=== PATIENT | male | born 1955 | race Caucasian/White ===

== ENCOUNTER 2020-04-17 13:31 | Inpatient (IN) | payer MEDICAID, OTHER ==
[~2020-04-17] VITALS: Ht 170.2 cm; Wt 75.7 kg
[2020-04-17] MEDS ORDERED: SODIUM CHLORIDE 0.9% 500 ML IV ONE (13:36)
[2020-04-17 14:14] LABS: Basophils # (auto) 0 10 ^3/uL (0-0.2); Basophils % (auto) 0.3 % (0.0-2.0); Eosinophils # (auto) 0 10 ^3/uL (0-0.8); Eosinophils % (auto) 0.2 % (0.0-7.0); Hematocrit 26.4 % (41.0-53.0); Hemoglobin 8.8 g/dL (13.5-17.5); Lymphocytes # (auto) 0.5 10 ^3/uL (0.4-5.4); Lymphocytes % (auto) 11.2 % (10.0-50.0); Mean Corpuscular Hemoglobin 28.9 pg (28.0-32.0); Mean Corpuscular Hgb Conc. 33.3 g/dL (32.0-36.0); Mean Corpuscular Volume 86.8 fL (80.0-100.0); Monocytes # (auto) 0.1 10 ^3/uL (0-1.3); Monocytes % (auto) 2.9 % (0.0-12.0); Neutrophils # (auto) 4.2 10 ^3/uL (1.6-8.6); Neutrophils % (auto) 85.4 % (37.0-80.0); Platelet Count (auto) 150 10^3/uL (140-450); Red Blood Cells 3.04 10^6/uL (4.5-5.90); Red Cell Distribution Width 17.4 % (11.8-14.3); White Blood Cell 4.9 10^3/uL (4.4-10.8)
[2020-04-17 14:32] LABS: Calcium 7.6 mg/dL (8.5-10.1)
[2020-04-17 14:39] LABS: BUN/Creatinine Ratio 17.8; Bilirubin, Total 0.9 mg/dL (0.2-1.0); Total Protein 7.8 g/dL (6.4-8.2)
[2020-04-17] MEDS ORDERED: MORPHINE SULFATE 4 MG/ML SYR/VIAL IV PRN (15:30)
[2020-04-17] MEDS ORDERED: ENOXAPARIN SOD 80 MG/0.8ML SYRINGE SC ONE (15:30)
[2020-04-17] MEDS ORDERED: MORPHINE SULF INJ 2 MG/ML SYRINGE 1ML IV PRN (15:30)
[2020-04-17] MEDS ORDERED: LORazepam 0.5 MG TAB PO PRN (15:30)
[2020-04-17] MEDS ORDERED: NITROGLYCERIN 0.4 MG SL TAB SL PRN ×2 (15:30)
[2020-04-17] MEDS ORDERED: ONDANSETRON HCL 4 MG/2 ML VIAL IV PRN (15:30)
[2020-04-17] MEDS ORDERED: CYCLOBENZAPRINE HCL 10 MG TAB PO PRN (15:45)
[2020-04-17] MEDS: SODIUM CHLORIDE 0.9% 1,000 ML IV SCH (16:14)
[2020-04-17] MEDS: ASPirin 81 mg TAB PO SCH (16:16)
[2020-04-17] MEDS ORDERED: LACTULOSE 20Gm/30ML SOLN PO PRN (16:30)
[2020-04-17] MEDS ORDERED: HEPARIN DRIP/D5W 100UNITS/ML 250 ML IV SCH ×2 (17:27→18:00)
[2020-04-17] MEDS ORDERED: HEPARIN SODIUM (PORCINE) 5000 UNITS/ML 1ML VIAL IV ONE (17:30)
[2020-04-17] MEDS: FUROSEMIDE 20 MG/2 ML VIAL IV SCH (17:40)
[2020-04-17 17:43] VITALS: BP 110/68
[2020-04-17 18:36] LABS: INR 1.21 (0.9-1.15); Partial Thromboplastin Time 33.9 sec (23.64-32.05)
[2020-04-17 19:03] LABS: Basophils # (auto) 0 10 ^3/uL (0-0.2); Eosinophils # (auto) 0 10 ^3/uL (0-0.8); Eosinophils % (auto) 0.6 % (0.0-7.0); Hemoglobin 7.7 g/dL (13.5-17.5); Lymphocytes # (auto) 0.8 10 ^3/uL (0.4-5.4); Monocytes # (auto) 0.2 10 ^3/uL (0-1.3); Neutrophils # (auto) 3.5 10 ^3/uL (1.6-8.6); White Blood Cell 4.6 10^3/uL (4.4-10.8)
[2020-04-17 19:06] LABS: Basophils % (auto) 0.5 % (0.0-2.0); Hematocrit 23.2 % (41.0-53.0); Mean Corpuscular Hemoglobin 28.7 pg (28.0-32.0); Mean Corpuscular Hgb Conc. 33.4 g/dL (32.0-36.0); Monocytes % (auto) 4.7 % (0.0-12.0); Neutrophils % (auto) 77.2 % (37.0-80.0); Nucleated Red Blood Cells % 0.1 %; Platelet Count (auto) 147 10^3/uL (140-450); Red Cell Distribution Width 17.5 % (11.8-14.3)
[2020-04-17] MEDS: GABAPENTIN 300 MG CAP PO SCH (21:24)
[2020-04-17] MEDS: metroNIDAZOLE 500MG/100ML 100 ML IV SCH (21:24)
[2020-04-17] MEDS: ATORVASTATIN 20 MG TAB PO SCH (21:25)
[2020-04-17] MEDS: METOPROLOL TARTRATE 25 MG TAB PO SCH (21:39)
[2020-04-17 22:00] VITALS: BP 96/54
[2020-04-18 01:58] LABS: INR 1.25 (0.9-1.15); Partial Thromboplastin Time 64.5 sec (23.64-32.05)
[2020-04-18] MEDS: SODIUM CHLORIDE 0.9% 1,000 ML IV SCH ×2 (04:45→18:23)
[2020-04-18 05:00] VITALS: BP 102/53
[2020-04-18 05:16] LABS: Urine Bacteria FEW /hpf (None Seen); Urine Blood 3+ /uL (Negative); Urine Hyaline Cast FEW /lpf (0 - 2); Urine Mucus FEW (None Seen); Urine Specific Gravity 1.014 (1.001-1.035); Urine WBC 6 /hpf (0 - 3)
[2020-04-18 05:30] LABS: Alcohol, Urine < 3.0 mg/dL (0-10); Amphetamine Screen, Urine NEGATIVE (NEGATIVE); Barbiturate Scree,Urine NEGATIVE (NEGATIVE); Benzodiazephine Screen, Urine NEGATIVE (NEGATIVE); Cannabinoid Screen, Urine NEGATIVE (NEGATIVE); Cocaine Screen, Urine NEGATIVE (NEGATIVE); Opiate Scree,Urine NEGATIVE (NEGATIVE); Phencyclidine Screen, Urine NEGATIVE (NEGATIVE)
[2020-04-18] MEDS: FUROSEMIDE 20 MG/2 ML VIAL IV SCH (06:00)
[2020-04-18] MEDS: GABAPENTIN 300 MG CAP PO SCH ×3 (06:01→21:57)
[2020-04-18] MEDS: metroNIDAZOLE 500MG/100ML 100 ML IV SCH ×3 (06:01→21:56)
[2020-04-18 06:17] LABS: Basophils # (auto) 0 10 ^3/uL (0-0.2); Basophils % (auto) 1.1 % (0.0-2.0); Eosinophils # (auto) 0 10 ^3/uL (0-0.8); Eosinophils % (auto) 0.9 % (0.0-7.0); Hematocrit 21.9 % (41.0-53.0); Hemoglobin 7.2 g/dL (13.5-17.5); Lymphocytes # (auto) 0.6 10 ^3/uL (0.4-5.4); Lymphocytes % (auto) 16.1 % (10.0-50.0); Mean Corpuscular Hemoglobin 28.3 pg (28.0-32.0); Mean Corpuscular Hgb Conc. 32.9 g/dL (32.0-36.0); Mean Corpuscular Volume 86.1 fL (80.0-100.0); Monocytes # (auto) 0.2 10 ^3/uL (0-1.3); Monocytes % (auto) 4.2 % (0.0-12.0); Neutrophils % (auto) 77.7 % (37.0-80.0); Nucleated Red Blood Cells % 0.1 %; Platelet Count (auto) 145 10^3/uL (140-450); Red Blood Cells 2.54 10^6/uL (4.5-5.90); Red Cell Distribution Width 17.5 % (11.8-14.3); White Blood Cell 3.9 10^3/uL (4.4-10.8)
[2020-04-18 06:36] LABS: INR 1.23 (0.9-1.15); Partial Thromboplastin Time 50.5 sec (23.64-32.05)
[2020-04-18 06:41] LABS: Potassium 3.7 mmol/L (3.5-5.1)
[2020-04-18 06:54] LABS: Albumin 1.9 g/dL (3.4-5.0); BUN/Creatinine Ratio 18.7; Bilirubin, Total 0.8 mg/dL (0.2-1.0); Calcium 7.3 mg/dL (8.5-10.1); Magnesium 1.9 mg/dL (1.6-2.6); Total Protein 6.8 g/dL (6.4-8.2)
[2020-04-18] MEDS: ASPirin 81 mg TAB PO SCH (07:39)
[2020-04-18 08:10] LABS: INR 1.23 (0.9-1.15); Partial Thromboplastin Time 52.9 sec (23.64-32.05)
[2020-04-18 09:00] VITALS: BP 106/56
[2020-04-18] MEDS ORDERED: cefTRIAXone 1GM/50ML D5W 50 ML IV SCH (09:00)
[2020-04-18] MEDS: METOPROLOL TARTRATE 25 MG TAB PO SCH ×2 (09:09→21:57)
[2020-04-18] MEDS: LISINOPRIL 5 MG TAB PO SCH (09:10)
[2020-04-18] MEDS: DOCUSATE SOD 100 MG CAP PO SCH (09:10)
[2020-04-18] MEDS ORDERED: CLOPIDOGREL BISULFATE 75 MG TAB PO SCH (10:00)
[2020-04-18] MEDS ORDERED: SPIRONOLACTONE 25 MG TAB PO SCH (10:00)
[2020-04-18 10:32] LABS: % Iron Saturation 14.7 % (20-55)
[2020-04-18] MEDS ORDERED: MIDAZOLAM HCL 1MG/1ML-2 ML VIAL IV ONE (11:00)
[2020-04-18] MEDS ORDERED: LIDOCAINE VISCOUS 2% 15ML UD MT ONE (11:00)
[2020-04-18] MEDS ORDERED: fentaNYL CITRATE 100 MCG/2 ML VL IV ONE (11:00)
[2020-04-18] MEDS: Ensure HIGH Protein Chocolate 8oz Bottle PO SCH ×3 (12:00→21:57)
[2020-04-18] MEDS ORDERED: cefTRIAXone 1GM/50ML D5W 50 ML IV ONE (12:30)
[2020-04-18] MEDS ORDERED: VANCOMYCIN PER PHARMACY 0 MG IV SCH (12:30)
[2020-04-18] MEDS ORDERED: VANCOMYCIN 1GM/250ML 250 ML IV ONE (13:00)
[2020-04-18 17:00] VITALS: BP 92/60
[2020-04-18 19:02] LABS: Hematocrit 25.9 % (41.0-53.0); Hemoglobin 8.5 g/dL (13.5-17.5)
[2020-04-18] MEDS ORDERED: IOHEXOL 300 MG/ML 100ML BOTTLE IJ ONE (20:10)
[2020-04-18] MEDS: ATORVASTATIN 20 MG TAB PO SCH (21:57)
[2020-04-18 22:00] VITALS: BP 106/62
[2020-04-19] MEDS: SODIUM CHLORIDE 0.9% 1,000 ML IV SCH ×2 (02:46→21:02)
[2020-04-19 04:35] VITALS: BP 104/66
[2020-04-19 05:35] LABS: Basophils # (auto) 0 10 ^3/uL (0-0.2); Eosinophils # (auto) 0 10 ^3/uL (0-0.8); Lymphocytes # (auto) 0.9 10 ^3/uL (0.4-5.4); Monocytes # (auto) 0.2 10 ^3/uL (0-1.3); Neutrophils # (auto) 2.6 10 ^3/uL (1.6-8.6); White Blood Cell 3.8 10^3/uL (4.4-10.8)
[2020-04-19 05:38] LABS: Eosinophils % (auto) 1.1 % (0.0-7.0); Hematocrit 20.1 % (41.0-53.0); Lymphocytes % (auto) 23.6 % (10.0-50.0); Mean Corpuscular Hgb Conc. 33.7 g/dL (32.0-36.0); Mean Corpuscular Volume 86.2 fL (80.0-100.0); Monocytes % (auto) 5.9 % (0.0-12.0); Neutrophils % (auto) 68.4 % (37.0-80.0); Nucleated Red Blood Cells % 0.1 %; Platelet Count (auto) 141 10^3/uL (140-450); Red Blood Cells 2.34 10^6/uL (4.5-5.90); Red Cell Distribution Width 17.4 % (11.8-14.3)
[2020-04-19] MEDS: metroNIDAZOLE 500MG/100ML 100 ML IV SCH ×3 (05:44→22:18)
[2020-04-19] MEDS: Ensure HIGH Protein Chocolate 8oz Bottle PO SCH ×4 (05:44→22:19)
[2020-04-19] MEDS: GABAPENTIN 300 MG CAP PO SCH ×3 (05:44→22:19)
[2020-04-19 05:49] LABS: Hemoglobin 6.8 g/dL (13.5-17.5)
[2020-04-19 05:57] LABS: Potassium 3.7 mmol/L (3.5-5.1)
[2020-04-19 06:10] LABS: BUN/Creatinine Ratio 21.4; Calcium 7.4 mg/dL (8.5-10.1)
[2020-04-19 07:49] LABS: Hematocrit 21.6 % (41.0-53.0); Hemoglobin 7.4 g/dL (13.5-17.5)
[2020-04-19 08:00] VITALS: BP 106/62
[2020-04-19] MEDS ORDERED: VANCOMYCIN 1GM/250ML 250 ML IV SCH (08:00)
[2020-04-19 09:16] VITALS: BP 99/58
[2020-04-19] MEDS: LISINOPRIL 5 MG TAB PO SCH (10:00)
[2020-04-19] MEDS: METOPROLOL TARTRATE 25 MG TAB PO SCH ×2 (10:00→22:00)
[2020-04-19] MEDS: ASPirin 81 mg TAB PO SCH (10:00)
[2020-04-19] MEDS: DOCUSATE SOD 100 MG CAP PO SCH (10:31)
[2020-04-19] MEDS: cefTRIAXone 1GM/50ML D5W 50 ML IV SCH (10:31)
[2020-04-19 12:46] VITALS: BP 101/71
[2020-04-19 16:30] VITALS: BP 100/55
[2020-04-19] MEDS: VANCOMYCIN 750mg/250ml 250 ML IV SCH (21:01)
[2020-04-19] MEDS: ATORVASTATIN 20 MG TAB PO SCH (22:19)
[2020-04-19 22:41] VITALS: BP 103/58
[2020-04-20] VITALS (10 sets, daily range): BP systolic 88–114; BP diastolic 58–73
[2020-04-20] MEDS: GABAPENTIN 300 MG CAP PO SCH ×3 (06:06→22:23)
[2020-04-20] MEDS: Ensure HIGH Protein Chocolate 8oz Bottle PO SCH ×4 (06:06→22:34)
[2020-04-20] MEDS: metroNIDAZOLE 500MG/100ML 100 ML IV SCH ×3 (06:06→22:33)
[2020-04-20 06:08] LABS: Basophils # (auto) 0 10 ^3/uL (0-0.2); Eosinophils # (auto) 0 10 ^3/uL (0-0.8); Eosinophils % (auto) 1.3 % (0.0-7.0); Lymphocytes # (auto) 0.8 10 ^3/uL (0.4-5.4); Monocytes # (auto) 0.2 10 ^3/uL (0-1.3); Neutrophils # (auto) 2.7 10 ^3/uL (1.6-8.6); Platelet Count (auto) 136 10^3/uL (140-450); White Blood Cell 3.9 10^3/uL (4.4-10.8)
[2020-04-20 06:11] LABS: Basophils % (auto) 0.7 % (0.0-2.0); Hematocrit 21.1 % (41.0-53.0); Lymphocytes % (auto) 21.4 % (10.0-50.0); Mean Corpuscular Hemoglobin 28.9 pg (28.0-32.0); Mean Corpuscular Hgb Conc. 33.3 g/dL (32.0-36.0); Mean Corpuscular Volume 86.9 fL (80.0-100.0); Monocytes % (auto) 6.1 % (0.0-12.0); Neutrophils % (auto) 70.5 % (37.0-80.0); Nucleated Red Blood Cells % 0.1 %; Red Blood Cells 2.42 10^6/uL (4.5-5.90); Red Cell Distribution Width 17.5 % (11.8-14.3)
[2020-04-20 06:25] LABS: BUN/Creatinine Ratio 23.1; Calcium 7.2 mg/dL (8.5-10.1)
[2020-04-20] MEDS: VANCOMYCIN 750mg/250ml 250 ML IV SCH ×2 (08:18→20:08)
[2020-04-20] MEDS: cefTRIAXone 1GM/50ML D5W 50 ML IV SCH (09:47)
[2020-04-20] MEDS: ASPirin 81 mg TAB PO SCH (09:47)
[2020-04-20] MEDS: METOPROLOL TARTRATE 25 MG TAB PO SCH ×2 (09:47→22:25)
[2020-04-20] MEDS: DOCUSATE SOD 100 MG CAP PO SCH (09:48)
[2020-04-20] MEDS: LISINOPRIL 5 MG TAB PO SCH (09:48)
[2020-04-20] MEDS: SODIUM CHLORIDE 0.9% 1,000 ML IV SCH (10:05)
[2020-04-20 10:10] LABS: Hematocrit 19.6 % (41.0-53.0)
[2020-04-20 10:13] LABS: Hemoglobin 6.5 g/dL (13.5-17.5)
[2020-04-20] MEDS ORDERED: SODIUM CHLORIDE 0.9% 250 ML IV ONE (11:45)
[2020-04-20 18:41] LABS: Hemoglobin 7.6 g/dL (13.5-17.5)
[2020-04-20 18:43] LABS: Hematocrit 22.8 % (41.0-53.0)
[2020-04-20] MEDS: ATORVASTATIN 20 MG TAB PO SCH (22:23)
[2020-04-21] VITALS (7 sets, daily range): BP systolic 102–165; BP diastolic 58–70
[2020-04-21] MEDS: SODIUM CHLORIDE 0.9% 1,000 ML IV SCH ×2 (00:54→12:53)
[2020-04-21 05:04] LABS: Basophils # (auto) 0 10 ^3/uL (0-0.2); Basophils % (auto) 0.6 % (0.0-2.0); Eosinophils # (auto) 0.1 10 ^3/uL (0-0.8); Eosinophils % (auto) 1.3 % (0.0-7.0); Hematocrit 26.2 % (41.0-53.0); Hemoglobin 8.8 g/dL (13.5-17.5); Lymphocytes % (auto) 19.9 % (10.0-50.0); Mean Corpuscular Hemoglobin 29.2 pg (28.0-32.0); Mean Corpuscular Hgb Conc. 33.4 g/dL (32.0-36.0); Mean Corpuscular Volume 87.2 fL (80.0-100.0); Monocytes # (auto) 0.3 10 ^3/uL (0-1.3); Monocytes % (auto) 6.5 % (0.0-12.0); Neutrophils # (auto) 3.6 10 ^3/uL (1.6-8.6); Neutrophils % (auto) 71.7 % (37.0-80.0); Nucleated Red Blood Cells % 0.1 %; Platelet Count (auto) 161 10^3/uL (140-450); Red Cell Distribution Width 17.3 % (11.8-14.3); White Blood Cell 5.1 10^3/uL (4.4-10.8)
[2020-04-21] MEDS: GABAPENTIN 300 MG CAP PO SCH ×2 (05:19→14:15)
[2020-04-21] MEDS: metroNIDAZOLE 500MG/100ML 100 ML IV SCH ×2 (05:20→14:15)
[2020-04-21 05:21] LABS: BUN/Creatinine Ratio 22.7; Calcium 7.5 mg/dL (8.5-10.1); Potassium 4.2 mmol/L (3.5-5.1)
[2020-04-21] MEDS: Ensure HIGH Protein Chocolate 8oz Bottle PO SCH ×3 (05:23→18:27)
[2020-04-21] MEDS: cefTRIAXone 1GM/50ML D5W 50 ML IV SCH (09:57)
[2020-04-21] MEDS: ASPirin 81 mg TAB PO SCH (09:57)
[2020-04-21] MEDS: DOCUSATE SOD 100 MG CAP PO SCH (09:57)
[2020-04-21] MEDS: LISINOPRIL 5 MG TAB PO SCH (09:59)
[2020-04-21] MEDS: METOPROLOL TARTRATE 25 MG TAB PO SCH (09:59)
[2020-04-21] MEDS ORDERED: VANCOMYCIN 1GM/250ML 250 ML IV SCH (13:00)
[2020-04-21 18:04] LABS: Hemoglobin 7.8 g/dL (13.5-17.5)
[2020-04-21 18:06] LABS: Hematocrit 23.9 % (41.0-53.0)
== END 2020-04-21 19:45 | disposition short-term general hospital (02) | DRG 190 ==
LOC: ER 13:31 → EDBD 13:31 → TELE 16:26 → TELE-CENTR 17:22
PROVIDERS: ADMIT Hospitalist; ATTEND Internal Medicine
PROC: B246ZZ4 Ultrasonography of Right and Left Heart, Transesophageal (ICD-10-PCS; 2020-04-18)
PROC: 30233N1 Transfusion of Nonautologous Red Blood Cells into Peripheral Vein, Percutaneous Approach (ICD-10-PCS; principal; 2020-04-20)
DX: I21.4 Non-ST elevation (NSTEMI) myocardial infarction (principal); N17.0 Acute kidney failure with tubular necrosis; I50.43 Acute on chronic combined systolic (congestive) and diastolic (congestive) heart failure; E43 Unspecified severe protein-calorie malnutrition; J91.8 Pleural effusion in other conditions classified elsewhere; D69.59 Other secondary thrombocytopenia; E87.1 Hypo-osmolality and hyponatremia; G62.9 Polyneuropathy, unspecified; E88.09 Other disorders of plasma-protein metabolism, not elsewhere classified; I38 Endocarditis, valve unspecified; K76.6 Portal hypertension; G89.29 Other chronic pain; K42.9 Umbilical hernia without obstruction or gangrene; K70.9 Alcoholic liver disease, unspecified; F31.9 Bipolar disorder, unspecified; I13.0 Hypertensive heart and chronic kidney disease with heart failure and stage 1 through stage 4 chronic kidney disease, or unspecified chronic kidney disease; H91.90 Unspecified hearing loss, unspecified ear; I48.91 Unspecified atrial fibrillation; I48.92 Unspecified atrial flutter; M54.5 Low back pain; R73.9 Hyperglycemia, unspecified; N18.9 Chronic kidney disease, unspecified; Z20.828 Contact with and (suspected) exposure to other viral communicable diseases; Z91.14 Patient's other noncompliance with medication regimen; Z68.26 Body mass index [BMI] 26.0-26.9, adult; D63.8 Anemia in other chronic diseases classified elsewhere; D50.9 Iron deficiency anemia, unspecified
CPT/HCPCS: 36415; 70470; 71045; 74176; 80048; 80053; 80202; 80307; 81001; 82550; 83036; 83540; 83550; 83735; 83880; 84100; 84443; 84484; 85014; 85018; 85025; 85379; 85610; 85652; 85730; 86141; 86850; 86900; 86901; 86920; 87040; 87086; 93005; 93306; 93312; 93970; 96360; 96372; 99152; G0378; J0696; J2250; J2405; J3490

== ENCOUNTER 2020-05-02 23:39 | Inpatient (IN) | payer MEDICAID ==
[~2020-05-02] VITALS: Ht 170.2 cm; Wt 63.6 kg
[2020-05-02 23:25] VITALS: BP 105/55
--- NOTE | 2020-05-02 23:25 | NUR ---
Direct Admit Patient arrived from [place] via [facility] transport. Patient is A/Ox0, speech is garbled and unintelligible. Pt has no signs of distress. Patient now in bed and resting comfortably with the rails up x2 and the bed locked in the lowest position. Call light is within reach and sitter is in the room for Safety. Will continue to monitor.
[2020-05-02 23:45] VITALS: BP 105/55
--- NOTE | 2020-05-02 23:55 | NUR ---
Hospitalist Paged for Orders
[2020-05-03] MEDS ORDERED: DOCUSATE SOD 100 MG CAP PO PRN (01:15)
[2020-05-03] MEDS ORDERED: NITROGLYCERIN 0.4 MG SL TAB SL PRN (01:15)
[2020-05-03] MEDS ORDERED: HYDROcodone-ACET 5/325MG TAB PO PRN (01:15)
[2020-05-03] MEDS ORDERED: MORPHINE SULF INJ 2 MG/ML SYRINGE 1ML IV PRN ×2 (01:15)
[2020-05-03] MEDS ORDERED: ACETAMINOPHEN 325 MG TAB PO PRN (01:15)
[2020-05-03] MEDS ORDERED: ONDANSETRON HCL 4 MG/2 ML VIAL IV PRN (01:15)
[2020-05-03] MEDS: SODIUM CHLORIDE 0.9% 1,000 ML IV SCH ×2 (04:34→17:16)
[2020-05-03 05:00] VITALS: BP 110/49
[2020-05-03] MEDS: LACTULOSE 20Gm/30ML SOLN PO SCH ×3 (05:53→22:42)
[2020-05-03 07:01] LABS: Basophils # (auto) 0.1 10 ^3/uL (0-0.2); Eosinophils # (auto) 0.2 10 ^3/uL (0-0.8); Monocytes # (auto) 0.5 10 ^3/uL (0-1.3); Neutrophils # (auto) 4.9 10 ^3/uL (1.6-8.6)
[2020-05-03 07:03] LABS: Basophils % (auto) 1.2 % (0.0-2.0); Hematocrit 21.7 % (41.0-53.0); Hemoglobin 7.4 g/dL (13.5-17.5); Lymphocytes % (auto) 14.8 % (10.0-50.0); Mean Corpuscular Hemoglobin 29.9 pg (28.0-32.0); Monocytes % (auto) 7.3 % (0.0-12.0); Neutrophils % (auto) 73.7 % (37.0-80.0); Nucleated Red Blood Cells % 0.1 %; Platelet Count (auto) 250 10^3/uL (140-450); Red Blood Cells 2.46 10^6/uL (4.5-5.90); Red Cell Distribution Width 18.2 % (11.8-14.3); White Blood Cell 6.6 10^3/uL (4.4-10.8)
[2020-05-03 07:16] LABS: Potassium 3.6 mmol/L (3.5-5.1)
[2020-05-03 07:21] LABS: BUN/Creatinine Ratio 13.9; Calcium 8.1 mg/dL (8.5-10.1)
--- NOTE | 2020-05-03 08:02 | NUR ---
OPENING SHIFT NOTE Assumed care of patient, awake and alert. No S/S of distress/SOB or pain. Sitter at bedside. Instructed on POC and to call for assist PRN. Bed in low and locked position. Side rails up x2. Call light within reach. Will continue to monitor for changes Q1hr and PRN.
[2020-05-03 09:00] VITALS: BP 112/61
[2020-05-03] MEDS ORDERED: FUROSEMIDE 40 MG/4 ML VIAL IV SCH (10:00)
[2020-05-03] MEDS ORDERED: cefTRIAXone 1GM/50ML D5W 50 ML IV SCH (10:00)
[2020-05-03] MEDS: METOPROLOL TARTRATE 25 MG TAB PO SCH ×2 (11:36→22:43)
[2020-05-03] MEDS: LISINOPRIL 20 MG TAB PO SCH (11:36)
[2020-05-03] MEDS: LORazepam 0.5 MG TAB PO PRN ×2 (11:36→20:08)
[2020-05-03 13:00] VITALS: BP 104/70
[2020-05-03 17:00] VITALS: BP 138/52
[2020-05-03] MEDS ORDERED: IOHEXOL 300 MG/ML 100ML BOTTLE IJ ONE (17:50)
[2020-05-03 19:23] LABS: INR 1.2 (0.9-1.15)
[2020-05-03] MEDS: Ensure HIGH Protein Chocolate 8oz Bottle PO SCH (20:08)
[2020-05-03] MEDS: FERROUS SULFATE 325 MG TAB PO SCH (20:08)
[2020-05-03] MEDS: ATORVASTATIN 20 MG TAB PO SCH (20:08)
[2020-05-03 21:02] VITALS: BP 116/73
[2020-05-04 05:39] VITALS: BP 97/59
[2020-05-04] MEDS: LACTULOSE 20Gm/30ML SOLN PO SCH (06:00)
--- NOTE | 2020-05-04 08:06 | NUR ---
OPENING SHIFT NOTE Resumed care of patient. No S/S of distress/SOB or pain. Dr Colin is aware of C results from 05/03. Sitter at bedside. Instructed on POC and to call for assist PRN. Bed in low and locked position. Side rails up x2. Call light within reach. Will continue to monitor for changes Q1hr and PRN.
[2020-05-04 09:00] VITALS: BP 95/58
[2020-05-04] MEDS: Ensure HIGH Protein Chocolate 8oz Bottle PO SCH ×2 (09:48→17:21)
[2020-05-04] MEDS: FERROUS SULFATE 325 MG TAB PO SCH ×2 (09:48→17:20)
[2020-05-04] MEDS: PANTOPRAZOLE 40 MG/10 ML VIAL INJ IV SCH (09:48)
[2020-05-04] MEDS: ASPirin 81 mg TAB PO SCH (09:48)
[2020-05-04] MEDS: LORazepam 0.5 MG TAB PO PRN (09:49)
[2020-05-04] MEDS: LISINOPRIL 20 MG TAB PO SCH (09:53)
[2020-05-04] MEDS: METOPROLOL TARTRATE 25 MG TAB PO SCH ×2 (09:54→23:23)
[2020-05-04] MEDS: SODIUM CHLORIDE 0.9% 1,000 ML IV SCH (10:30)
[2020-05-04 13:00] VITALS: BP 94/52
--- NOTE | 2020-05-04 15:00 | NUR ---
PT REFUSED P.T. X 2.
[2020-05-04 17:00] VITALS: BP 97/53
[2020-05-04] MEDS: ATORVASTATIN 20 MG TAB PO SCH (17:21)
--- NOTE | 2020-05-04 19:00 | NUR ---
Opening Shift Note Assumed care of patient, awake,alert&oriented x2 Sitter on bedside. No S/S of distress/SOB or pain. Instructed sitter on POC and to call for assist PRN, will continue to monitor for changes Q1hr and PRN.
[2020-05-04] MEDS: PIPERACILLIN-TAZO 4.5GM 100 ML IV SCH ×2 (19:11→23:41)
[2020-05-04 22:00] VITALS: BP_SYST 111; BP_SYST 95; BP_DIAS 49; BP_DIAS 63
[2020-05-04 23:00] VITALS: BP 111/49
[2020-05-05] MEDS: SODIUM CHLORIDE 0.9% 1,000 ML IV SCH ×2 (03:04→19:44)
[2020-05-05 05:00] VITALS: BP 99/59
[2020-05-05] MEDS: PIPERACILLIN-TAZO 4.5GM 100 ML IV SCH ×2 (06:01→14:30)
[2020-05-05 06:56] LABS: Basophils # (auto) 0.1 10 ^3/uL (0-0.2); Eosinophils # (auto) 0.2 10 ^3/uL (0-0.8); Hematocrit 22.2 % (41.0-53.0); Monocytes # (auto) 0.5 10 ^3/uL (0-1.3); Neutrophils # (auto) 4.6 10 ^3/uL (1.6-8.6); Red Blood Cells 2.49 10^6/uL (4.5-5.90); White Blood Cell 6.4 10^3/uL (4.4-10.8)
[2020-05-05 06:59] LABS: Basophils % (auto) 1.3 % (0.0-2.0); Eosinophils % (auto) 2.5 % (0.0-7.0); Hemoglobin 7.4 g/dL (13.5-17.5); Lymphocytes # (auto) 1.1 10 ^3/uL (0.4-5.4); Lymphocytes % (auto) 16.7 % (10.0-50.0); Mean Corpuscular Hemoglobin 29.7 pg (28.0-32.0); Mean Corpuscular Hgb Conc. 33.2 g/dL (32.0-36.0); Mean Corpuscular Volume 89.5 fL (80.0-100.0); Monocytes % (auto) 7.5 % (0.0-12.0); Platelet Count (auto) 265 10^3/uL (140-450); Red Cell Distribution Width 18.6 % (11.8-14.3)
--- NOTE | 2020-05-05 07:10 | NUR ---
Opening Shift Note Assumed care of patient, awake and alert. No S/S of distress/SOB or pain. Instructed on POC and to call for assist PRN, will continue to monitor for changes Q1hr and PRN. Bed locked in lowest position with two side rails up and call light in reach.
[2020-05-05 07:16] LABS: Potassium 3.6 mmol/L (3.5-5.1)
[2020-05-05 07:24] LABS: Albumin 2.1 g/dL (3.4-5.0); BUN/Creatinine Ratio 16.6; Bilirubin, Total 0.6 mg/dL (0.2-1.0); Calcium 8.2 mg/dL (8.5-10.1)
[2020-05-05 08:00] VITALS: BP 94/61
[2020-05-05] MEDS: FERROUS SULFATE 325 MG TAB PO SCH ×2 (08:00→18:24)
[2020-05-05] MEDS: Ensure HIGH Protein Chocolate 8oz Bottle PO SCH ×2 (08:00→18:24)
[2020-05-05 09:00] VITALS: BP 94/61
[2020-05-05] MEDS: METOPROLOL TARTRATE 25 MG TAB PO SCH ×2 (10:00→23:21)
[2020-05-05] MEDS: PANTOPRAZOLE 40 MG/10 ML VIAL INJ IV SCH (10:00)
[2020-05-05] MEDS: LISINOPRIL 20 MG TAB PO SCH (10:00)
[2020-05-05] MEDS: ASPirin 81 mg TAB PO SCH (10:00)
[2020-05-05 10:23] LABS: Folate (Folic Acid) 7.61 ng/mL (5.38-24)
--- NOTE | 2020-05-05 10:36 | NUR ---
PATIENT DECLINED PT. Addendum: 05/05/20 at 1037 by JOSE FINNEGAN PTT Amended: Links added.
--- NOTE | 2020-05-05 10:45 | NUR ---
ELECTROENCEPHALOGRAM PT REFUSED EEG. PT REMOVED LEADS UPON SETUP. PRIMARY RN ERICK WEBSTER.
[2020-05-05] MEDS ORDERED: LEVOTHYROXINE SODIUM 50 MCG TAB PO ONE (12:15)
--- NOTE | 2020-05-05 12:15 | NUR ---
DR ELZBIETA BREWER
[2020-05-05 13:00] VITALS: BP 98/50
[2020-05-05] MEDS: LEVOTHYROXINE SODIUM 50 MCG TAB PO SCH (13:15)
--- NOTE | 2020-05-05 15:00 | NUR ---
PER DR STEELE PATIENT WILL NOT HAVE A TIMMY. ORDERS TO BE CANCELLED AND DIET TO BE PLACED.
[2020-05-05 17:00] VITALS: BP 100/45
[2020-05-05] MEDS: ATORVASTATIN 20 MG TAB PO SCH (18:24)
[2020-05-05] MEDS: PIPERACILLIN-TAZOB 3.375GM 100 ML IV SCH (18:25)
--- NOTE | 2020-05-05 19:00 | NUR ---
Opening Shift Note Assumed care of patient, awake,alert & ORIENTED X2 Sitter on bedside No S/S of distress/SOB or pain. Instructed sitter on POC and to call for assist PRN. Will continue to monitor for changes Q1hr and PRN.
[2020-05-05 21:38] VITALS: BP 108/64
[2020-05-06 05:00] VITALS: BP 103/68
[2020-05-06] MEDS: PIPERACILLIN-TAZOB 3.375GM 100 ML IV SCH ×4 (06:18→17:46)
[2020-05-06] MEDS: LEVOTHYROXINE SODIUM 50 MCG TAB PO SCH (06:21)
[2020-05-06] MEDS ORDERED: LEVOTHYROXINE SODIUM 50 MCG TAB PO SCH (07:00)
[2020-05-06 07:58] LABS: Basophils # (auto) 0.1 10 ^3/uL (0-0.2); Hematocrit 22.6 % (41.0-53.0); Lymphocytes # (auto) 1.2 10 ^3/uL (0.4-5.4); Mean Corpuscular Hemoglobin 29.5 pg (28.0-32.0); Monocytes # (auto) 0.4 10 ^3/uL (0-1.3); Neutrophils # (auto) 4.5 10 ^3/uL (1.6-8.6); White Blood Cell 6.3 10^3/uL (4.4-10.8)
[2020-05-06 08:00] VITALS: BP 88/54
[2020-05-06 08:00] LABS: Basophils % (auto) 1.3 % (0.0-2.0); Eosinophils # (auto) 0.2 10 ^3/uL (0-0.8); Eosinophils % (auto) 2.4 % (0.0-7.0); Hemoglobin 7.4 g/dL (13.5-17.5); Lymphocytes % (auto) 18.5 % (10.0-50.0); Mean Corpuscular Hgb Conc. 32.9 g/dL (32.0-36.0); Mean Corpuscular Volume 89.6 fL (80.0-100.0); Monocytes % (auto) 6.5 % (0.0-12.0); Neutrophils % (auto) 71.3 % (37.0-80.0); Platelet Count (auto) 280 10^3/uL (140-450); Red Blood Cells 2.52 10^6/uL (4.5-5.90); Red Cell Distribution Width 18.7 % (11.8-14.3)
[2020-05-06] MEDS: FERROUS SULFATE 325 MG TAB PO SCH ×2 (08:10→17:47)
[2020-05-06] MEDS: Ensure HIGH Protein Chocolate 8oz Bottle PO SCH ×3 (08:10→17:24)
[2020-05-06 08:13] LABS: BUN/Creatinine Ratio 15.7; Calcium 8.3 mg/dL (8.5-10.1); Potassium 3.8 mmol/L (3.5-5.1)
[2020-05-06 09:00] VITALS: BP 88/58
[2020-05-06] MEDS: METOPROLOL TARTRATE 25 MG TAB PO SCH ×2 (10:00→23:37)
[2020-05-06] MEDS: LISINOPRIL 20 MG TAB PO SCH (10:00)
[2020-05-06] MEDS: ASPirin 81 mg TAB PO SCH (11:05)
[2020-05-06] MEDS: PANTOPRAZOLE 40 MG/10 ML VIAL INJ IV SCH (11:05)
[2020-05-06] MEDS: SODIUM CHLORIDE 0.9% 1,000 ML IV SCH (11:06)
[2020-05-06] MEDS: AZITHROMYCIN 250 MG TAB PO SCH (11:06)
[2020-05-06 13:00] VITALS: BP 102/60
--- NOTE | 2020-05-06 15:50 | NUR ---
Assessment ' Patient is a 64-year-old male who is confused. Assessment was completed with patient mother Stephany ). Per Stephany prior to admission patient lived in an RV in her property in the [place] and functioned independently. Per Stephany patient was recently at [facility] and was transfer to [facility]. Per Stephany patient has a walker and walker with seat for home use. Advised patient there is a social service consult for SNF placement for IV abx for 6 weeks. Informed Stephany clinical information will be faxed to [facility], [facility], [facility], [facility] and [facility]. Informed Stephany she has the right to participate in all discharge planning. Stephany verbalized understanding and agreed to discharge plan. Informed ANDRZEJ harris (-) COVID test is needed for placement. Addendum: 05/07/20 at 1029 by TD HAN Amended: Links added.
[2020-05-06 16:42] VITALS: BP 108/71
[2020-05-06 17:23] LABS: INR 1.18 (0.9-1.15)
[2020-05-06] MEDS: ATORVASTATIN 20 MG TAB PO SCH (17:47)
[2020-05-06] MEDS ORDERED: LIDOCAINE 1% (LOCAL ANESTH.) PF 5ml SDV ID ONE (20:45)
--- NOTE | 2020-05-06 20:53 | NUR ---
PICC line placement Patient/Patient significant other educated on need for PICC line placement. All risks and benefits explained and all questions and concerns addressed prior to procedure. Noted past medical history and allergies with no contraindications. INR and Plt counts within acceptable range. 4 fr PICC line inserted via right basilic vein using [employer] US and Tip Location System. Sterile technique with maximum barrier precautions utilized. Blood return obtained from lumen and flushed easily with NS using proper technique. PICC secured with Stat-lock; biodisc and occlusive dressing applied. Stat portable chest x-ray obtained for PICC tip placement. *Baseline Arm Circumference 25cm, Internal length 43cm and External length 0cm. PICC lot #[id number]
--- NOTE | 2020-05-06 21:01 | NUR ---
Okay to use PICC line Xray completed and reviewed. Okay to use PICC line and primary RN notified.
[2020-05-06 21:56] VITALS: BP 109/74
[2020-05-06] MEDS: SODIUM CHLOR 0.9% PF (SALINE LOCK) 10ML VIAL/SYR IV SCH (22:00)
[2020-05-07] MEDS: PIPERACILLIN-TAZOB 3.375GM 100 ML IV SCH ×4 (00:26→17:34)
[2020-05-07] MEDS: SODIUM CHLORIDE 0.9% 1,000 ML IV SCH (05:04)
[2020-05-07 05:07] VITALS: BP 105/61
[2020-05-07 06:19] LABS: Basophils # (auto) 0.1 10 ^3/uL (0-0.2); Eosinophils # (auto) 0.1 10 ^3/uL (0-0.8); Eosinophils % (auto) 1.1 % (0.0-7.0); Hematocrit 21.4 % (41.0-53.0); Lymphocytes # (auto) 1.4 10 ^3/uL (0.4-5.4); Lymphocytes % (auto) 21.3 % (10.0-50.0); Mean Corpuscular Hemoglobin 29.3 pg (28.0-32.0); Mean Corpuscular Hgb Conc. 32.9 g/dL (32.0-36.0); Mean Corpuscular Volume 89.1 fL (80.0-100.0); Monocytes # (auto) 0.5 10 ^3/uL (0-1.3); Monocytes % (auto) 7.7 % (0.0-12.0); Neutrophils # (auto) 4.6 10 ^3/uL (1.6-8.6); Neutrophils % (auto) 68.9 % (37.0-80.0); Platelet Count (auto) 315 10^3/uL (140-450); Red Cell Distribution Width 18.7 % (11.8-14.3); White Blood Cell 6.7 10^3/uL (4.4-10.8)
[2020-05-07 06:43] LABS: BUN/Creatinine Ratio 13.9; Calcium 7.9 mg/dL (8.5-10.1); Potassium 3.8 mmol/L (3.5-5.1)
[2020-05-07] MEDS: LEVOTHYROXINE SODIUM 50 MCG TAB PO SCH (06:47)
--- NOTE | 2020-05-07 07:36 | NUR ---
RECEIVED A CALL FROM [facility] IN LAB PATIENT HAS A CRITICAL Hgb OF 7. 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
--- NOTE | 2020-05-07 07:45 | NUR ---
RECEIVED A CALL BACK FROM [facility] CRITICAL LAB VALUE REPORTED Hgb 7. PER [facility] REPEAT LABS IN 6 HOURS.
--- NOTE | 2020-05-07 07:51 | NUR ---
H/H REPEAT LAB ORDER PLACED FOR 1400 ORDERED.
[2020-05-07 08:00] VITALS: BP 97/56
[2020-05-07] MEDS: Ensure HIGH Protein Chocolate 8oz Bottle PO SCH ×3 (08:00→17:35)
[2020-05-07] MEDS: FERROUS SULFATE 325 MG TAB PO SCH ×2 (08:40→17:35)
[2020-05-07 09:00] VITALS: BP 97/56
--- NOTE | 2020-05-07 09:35 | NUR ---
DR BC BREWER
[2020-05-07] MEDS: PANTOPRAZOLE 40 MG/10 ML VIAL INJ IV SCH (09:43)
[2020-05-07] MEDS: SODIUM CHLOR 0.9% PF (SALINE LOCK) 10ML VIAL/SYR IV SCH (09:43)
[2020-05-07] MEDS: METOPROLOL TARTRATE 25 MG TAB PO SCH (09:44)
[2020-05-07] MEDS: ASPirin 81 mg TAB PO SCH (09:44)
[2020-05-07] MEDS: LISINOPRIL 20 MG TAB PO SCH (09:44)
[2020-05-07] MEDS: AZITHROMYCIN 250 MG TAB PO SCH (09:44)
[2020-05-07 11:35] LABS: Urine Bacteria FEW /hpf (None Seen); Urine Blood 2+ /uL (Negative); Urine Mucus FEW (None Seen); Urine Specific Gravity 1.021 (1.001-1.035); Urine WBC 9 /hpf (0 - 3)
[2020-05-07 13:00] VITALS: BP 101/51
[2020-05-07 14:22] LABS: Hemoglobin 7.3 g/dL (13.5-17.5)
[2020-05-07 14:24] LABS: Hematocrit 22.1 % (41.0-53.0)
--- NOTE | 2020-05-07 15:14 | NUR ---
Nutrition Assessment Notes Please refer to link for full assessment notes. Est Energy needs: 5939-4581 kcals (25-30 kcal/kgBW) Est Protein needs: 51-64 gms/day (0.8-1.0 gm/kgBW) Will continue to monitor and reassess prn. Addendum: 05/07/20 at [address] Amended: Links added.
[2020-05-07 15:42] VITALS: BP 101/51
--- NOTE | 2020-05-07 15:58 | NUR ---
D/C Planning Per Rosa Lundy patient has been accepted to room [address] Kandace ADDISON ). Faxed (-) COVID test to accepting facility. Obtain authorization from [facility] for SNF [id number] and Transportation [id number]. Faxed transportation form request to [facility] requesting a 16:30 picker and sorter load and unload time via [employer]. Per Maylin with [facility] the next availability is between 18:30-21:00 via [employer] with [employer] Ph:). Informed ANDRZEJ Dai.
[2020-05-07 16:52] VITALS: BP 105/67
--- NOTE | 2020-05-07 17:34 | NUR ---
CALLED [facility] TO GIVE REPORT. REPORT GIVEN TO MICHAEL AT [facility].
[2020-05-07] MEDS: ATORVASTATIN 20 MG TAB PO SCH (17:35)
--- NOTE | 2020-05-07 18:13 | NUR ---
PATIENT DISCHARGED Discharge instructions given as ordered. Encourage to follow up with PMD as instructed. All questions and concerns addressed. Patient verbalized understanding. Medication reconciliation form completed and copy given to patient. No Home medications held in Pharmacy and none to be returned to patient, and no needed vaccines given. PICC line left intact. Telemetry unit returned to ICU. Patient taken to vehicle via gurney with all personal belongings, accompanied by staff and family member. No distress noted at time of departure.
== END 2020-05-07 18:00 | DRG 200 ==
LOC: TELE-WESTW 23:39
PROVIDERS: ADMIT Hospitalist; ATTEND Internal Medicine
PROC: 02HV33Z Insertion of Infusion Device into Superior Vena Cava, Percutaneous Approach (ICD-10-PCS; principal; 2020-05-06)
PROC: B548ZZA Ultrasonography of Superior Vena Cava, Guidance (ICD-10-PCS; 2020-05-06)
PROC: 3E04329 Introduction of Other Anti-infective into Central Vein, Percutaneous Approach (ICD-10-PCS; 2020-05-06)
DX: I08.0 Rheumatic disorders of both mitral and aortic valves (principal); I76 Septic arterial embolism; G92 Toxic encephalopathy; E43 Unspecified severe protein-calorie malnutrition; J18.9 Pneumonia, unspecified organism; D68.69 Other thrombophilia; I11.0 Hypertensive heart disease with heart failure; K72.90 Hepatic failure, unspecified without coma; I48.92 Unspecified atrial flutter; I48.91 Unspecified atrial fibrillation; F01.50 Vascular dementia, unspecified severity, without behavioral disturbance, psychotic disturbance, mood disturbance, and anxiety; K74.60 Unspecified cirrhosis of liver; B18.2 Chronic viral hepatitis C; F31.9 Bipolar disorder, unspecified; F10.20 Alcohol dependence, uncomplicated; D50.9 Iron deficiency anemia, unspecified; I69.311 Memory deficit following cerebral infarction; Z87.891 Personal history of nicotine dependence; Z68.22 Body mass index [BMI] 22.0-22.9, adult; Z11.59 Encounter for screening for other viral diseases
CPT/HCPCS: 36415; 36569; 70470; 71045; 80048; 80053; 80061; 81001; 82140; 82533; 82607; 82746; 83036; 84443; 85014; 85018; 85025; 85610; 87040; 97116; 97530; C9113; G0378; J0696; J2543